=== PATIENT | male | born 1945 | race Caucasian/White ===

== ENCOUNTER 2021-04-05 16:11 | Emergency (ER) | payer MEDICARE, OTHER ==
--- NOTE | 2021-04-05 16:51 | EDM.PDOC ---
ED HPI GENERAL MEDICAL PROBLEM - General Chief Complaint: Upper Extremity Injury/Pain Stated Complaint: PINKIE PROBLEM Time Seen by Provider: 04/05/21 16:40 Source of Information: Reports: Patient - History of Present Illness INITIAL COMMENTS - FREE TEXT/NARRATIVE: Westley is a 75 y/o male who comes to the ER with complaints of a right 5th finger injury. About an hour and a half ago he was cutting down a tree and he reached to grab the limb and his finger go in the way. He has been unable to move his pinky ever since. Right Finger-Little Pain Score (Numeric/FACES): 2 - Related Data Allergies Allergy/AdvReac Type Severity Reaction Status Date / Time clopidogrel bisulfate Allergy Swelling Verified 04/05/21 16:38 [From Plavix] Home Meds: Home Meds Aspirin 325 mg PO DAILY 08/27/18 [History] Benazepril HCl [Lotensin] 40 mg PO DAILY 08/27/18 [History] Cholecalciferol (Vitamin D3) [D-2000] 2,000 unit PO DAILY 08/27/18 [History] Famotidine 20 mg PO BID 08/27/18 [History] Metoprolol Tartrate 12.5 mg PO DAILY@08 08/27/18 [History] Metoprolol Tartrate 25 mg PO DAILY@1700 08/27/18 [History] Multivitamin with Minerals [Multiple Vitamin] 1 tab PO DAILY 08/27/18 [History] Nitroglycerin [Nitrostat] 0.4 mg SL ASDIRECTED PRN 08/27/18 [History] Non-Formulary Medication [NF Drug] 100 mg PO ASDIRECTED PRN 08/27/18 [History] Rosuvastatin Calcium 40 mg PO DAILY 08/27/18 [History] Past Medical History - Past Health History Medical/Surgical History: Denies Medical/Surgical History HEENT History: Reports: Cataract Other HEENT History: presbyopia. myopia Cardiovascular History: Reports: CAD, High Cholesterol, Hypertension, [place] Other Cardiovascular History: h/o cardiac arrest. mild mitral regurgitation Respiratory History: Reports: Sleep Apnea, SOB Gastrointestinal History: Reports: Colon Polyp, GERD, Hemorrhoids Other Genitourinary History: ED erectile dysfunction Musculoskeletal History: Reports: Osteoarthritis Other Musculoskeletal History: left knee pain Neurological History: Reports: None Endocrine/Metabolic History: Reports: Obesity/BMI 30+ Hematologic History: Reports: None Immunologic History: Reports: None Oncologic (Cancer) History: Reports: Basal Cell Carcinoma Other Dermatologic History: actinic keratosis - Past Surgical History Other Cardiovascular Surgeries/Procedures: drug eluting stent GI Surgical History: Reports: Colonoscopy Review of Systems - Review of Systems Review Of Systems: See Below Constitutional: Reports: No Symptoms Eyes: Reports: No Symptoms Ears: Reports: No Symptoms Nose: Reports: No Symptoms Mouth/Throat: Reports: No Symptoms Respiratory: Reports: No Symptoms Cardiovascular: Reports: No Symptoms GI/Abdominal: Reports: No Symptoms Genitourinary: Reports: No Symptoms Musculoskeletal: Reports: Other (right 5th finger pain/demormity) Skin: Reports: No Symptoms Neurological: Reports: No Symptoms Psychiatric: Reports: No Symptoms ED EXAM, GENERAL - Physical Exam Exam: See Below General Appearance: Alert, WD/WN, No Apparent Distress (Elderly male.) Ears: Hearing Grossly Normal Nose: Normal Inspection Throat/Mouth: Normal Voice Head: Atraumatic, Normocephalic Neck: Normal Inspection Respiratory/Chest: No Respiratory Distress GI/Abdominal: Soft (Male) Exam: Deferred Rectal (Males) Exam: Deferred Extremities: Other (Note right 5th finger in flexed position, no brusing. ROM unable due to injury.) Neurological: Alert, Oriented, CN II-XII Intact, Normal Gait Psychiatric: Normal Affect, Normal Mood Skin Exam: Warm, Dry, Intact Lymphatic: No Adenopathy Course - Vital Signs Text/Narrative:: 1640 The patient was seen by the CUT OUT MARKER. Xray of his right 5th finger was done. CUT OUT MARKER reviewed xray and noted dislocation. Gentle traction placed on the right 5th digit and a small "pop" was noted and the joint went back into normal alignment. 1710 Post-Reducion xray obtained to rule our fx. The 5th finger was millicent taped to the right ring finger. Patient felt immediate relief of the pain. He was given discharge instructions and left the ER in stable condition. Last Recorded V/S: Last Vital Signs Temp 37.1 C 04/05/21 16:15 Pulse 70 04/05/21 16:15 Resp 16 04/05/21 16:15 BP 130/67 04/05/21 16:15 Pulse Ox 96 04/05/21 16:15 - Orders/Labs/Meds Orders: Active Orders 24 hr Category Date Time Status Fingers Fifth Digit Rt F9 [CR] Stat Exams 04/05/21 16:48 Taken Departure - Departure Time of Disposition: 17:08 Disposition: Home, Self-Care 01 Condition: Good Clinical Impression: Dislocation of right little finger Qualifiers: Encounter type: initial encounter Qualified Code(s): S63.256A - Unspecified dislocation of right little finger, initial encounter Accident Qualifiers: Encounter type: initial encounter Qualified Code(s): X58.XXXA - Exposure to ot her specified factors, initial encounter - Discharge Information *PRESCRIPTION DRUG MONITORING PROGRAM REVIEWED*: No *COPY OF PRESCRIPTION DRUG MONITORING REPORT IN PATIENT WON: No Instructions: Closed Reduction for Metacarpal Dislocation, Care After Forms: ED Department Discharge Additional Instructions: -Keep the 4th and 5th fingers millicent-taped for the next 7 days -Use ibuprofen or acetaminophen as needed for pain -Apply ice as needed -Follow up with your PCP if you have further problems -Return to the ER for any concerns Sepsis Event Note (ED) - Evaluation Sepsis Screening Result: No Definite Risk - Focused Exam Vital Signs: Vital Signs Temp Pulse Resp BP Pulse Ox 04/05/21 16:15 37.1 C 70 16 130/67 96 - My Orders Last 24 Hours: My Active Orders 04/05/21 16:48 Fingers Fifth Digit Rt F9 [CR] Stat - Assessment/Plan Last 24 Hours: My Active Orders 04/05/21 16:48 Fingers Fifth Digit Rt F9 [CR] Stat Assessment:: 1)5th Finger PIP Joint Dislocation 2)S/P Reduction of Dislocation Plan: As above
--- NOTE | 2021-04-05 16:57 | CR ---
[id number] RAD/RAD Fingers Right EXAM: RAD Fingers Right CLINICAL DATA: TRAUMA COMPARISON: No previous similar exam is available. FINDINGS: There is a flexion deformity of the right fifth PIP joint There is irregularity of the right fifth mid phalanx proximally. There are degenerative changes There is no definite acute fracture line IMPRESSION: FLEXION DEFORMITY OF RIGHT FIFTH PIP JOINT LIKELY A SUBLUXATION NO DEFINITE ACUTE FRACTURE LINE PRE-EXISTING DEGENERATIVE CHANGES Yohan Hathaway MD 04/05/21 [id number] Thank you for allowing us to participate in the care of your patient.
--- NOTE | 2021-04-05 17:35 | CR ---
[id number] RAD/RAD Fingers Right EXAM: RAD Fingers Right CLINICAL DATA: POST REDUCTION COMPARISON: CORRELATION IS MADE WITH THE EARLIER EXAM FINDINGS: The right fifth PIP joint now has returned to normal alignment There is a fracture deformity along the radial side of the base of the right fifth mid phalanx. IMPRESSION: SUCCESSFUL REDUCTION FRACTURE DEFORMITY AT THE BASE OF RIGHT FIFTH MID PHALANX, AGE INDETERMINATE Yohan Hathaway MD 04/05/21 0199 Thank you for allowing us to participate in the care of your patient.
== END 2021-04-05 17:15 | disposition home or self-care (01) ==
LOC: VM.ED 16:11
DX: S63.286A Dislocation of proximal interphalangeal joint of right little finger, initial encounter (principal); I25.10 Atherosclerotic heart disease of native coronary artery without angina pectoris; E78.00 Pure hypercholesterolemia, unspecified; I10 Essential (primary) hypertension; I25.2 Old myocardial infarction; K21.9 Gastro-esophageal reflux disease without esophagitis; M19.90 Unspecified osteoarthritis, unspecified site; E66.9 Obesity, unspecified; Z68.32 Body mass index [BMI] 32.0-32.9, adult; Z88.8 Allergy status to other drugs, medicaments and biological substances; Z79.82 Long term (current) use of aspirin; Z79.899 Other long term (current) drug therapy; X58.XXXA Exposure to other specified factors, initial encounter
CPT/HCPCS: 26770; 73140-F9; 99283; 99283-25

== ENCOUNTER 2023-09-27 09:21 | Day surgery (SDC) | payer MEDICARE, OTHER ==
[2023-09-27] MEDS: Lactated Ringers 1,000 ML IV SCH (09:37)
[2023-09-27] MEDS ORDERED: Propofol 200 MG/20 ML SDV ONE (10:45)
[2023-09-27] MEDS ORDERED: Midazolam 1 MG/ML 2 ML SDV ONE (10:45)
[2023-09-27] MEDS ORDERED: fentaNYL 100 MCG/2 ML SDV ONE (10:45)
== END 2023-09-27 13:15 | disposition home or self-care (01) ==
LOC: VM.SDS 09:21
PROVIDERS: ATTEND Family Medicine
DX: Z12.11 Encounter for screening for malignant neoplasm of colon (principal); D12.6 Benign neoplasm of colon, unspecified; I25.10 Atherosclerotic heart disease of native coronary artery without angina pectoris; I10 Essential (primary) hypertension; R73.01 Impaired fasting glucose; E78.5 Hyperlipidemia, unspecified; E66.9 Obesity, unspecified; G47.33 Obstructive sleep apnea (adult) (pediatric); Z68.33 Body mass index [BMI] 33.0-33.9, adult; Z79.82 Long term (current) use of aspirin; Z79.899 Other long term (current) drug therapy
CPT/HCPCS: 00812; 88305; J2250; J2704; J3010; J7120